=== PATIENT | male | born 1985 | race Caucasian/White ===

== ENCOUNTER 2018-07-26 01:05 | Emergency (ER) | payer SELFPAY ==
[~2018-07-26] VITALS: Ht 172.7 cm; Wt 90.7 kg
[2018-07-26] MEDS ORDERED: IBUPROFEN 800 MG TABLET ONE (01:24)
[2018-07-26] MEDS ORDERED: IBUPROFEN 800 MG TABLET PO ONE (01:30)
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
--- NOTE | 2018-07-26 01:38 | NUR ---
XRAY AT BEDSIDE.
[2018-07-26] MEDS ORDERED: HYDROCODONE/APAP 10-325 MG TABLET PO ONE (01:45)
[2018-07-26] MEDS ORDERED: HYDROCODONE/APAP 10-325 MG TABLET ONE (01:47)
--- NOTE | 2018-07-26 02:53 | NUR ---
CRUTCH EDUATION PROVIDED. PT CORRECTLY DEMONSTRATES SAFE USE OF CRUTCHES.
--- NOTE | 2018-07-26 02:55 | NUR ---
Patient discharged to home in stable conditon. Written and verbal after care instructions given. Patient verbalizes understanding of instructions. PT D/C WITH PRESCRIPTIONS. CRUTCH EDUCATION PROVIDED. PT DEMONSTRATES SAFE USE OF CRUTCHES. PT INSTRUCTED NOT TO DRIVE, STATES HIS BROTHER WILL DRIVE HIM HOME IN PRIVATE VEHICLE. PT SELF-AMBULATED W/ CRUTCHES WITHOUT DIFFICULTY. ALL BELONGINGS W/ PT.
[2018-07-26 03:23] VITALS: BP 126/76
== END 2018-07-26 03:24 | disposition home or self-care (01) ==
LOC: ER 01:07
DX: S93.401A Sprain of unspecified ligament of right ankle, initial encounter (principal); F17.200 Nicotine dependence, unspecified, uncomplicated; V43.52XA Car driver injured in collision with other type car in traffic accident, initial encounter; Y93.89 Activity, other specified; Y92.410 Unspecified street and highway as the place of occurrence of the external cause; Y99.8 Other external cause status
CPT/HCPCS: 73610; 99284; A4663